=== PATIENT | male | born 1950 | race Caucasian/White ===

== ENCOUNTER 2017-02-14 14:43 | Inpatient (IN) | payer MEDICARE ==
[~2017-02-14] VITALS: Ht 170.2 cm; Wt 95.7 kg
[2017-02-14] MEDS ORDERED: ABILIFY (15:20)
[2017-02-14] MEDS ORDERED: LEVOTHYROXINE (15:20)
[2017-02-14 15:47] LABS: BASOPHILS % (AUTO) 0.4 % (0.0-2.0); EOSINOPHILS % (AUTO) 0.2 % (0.0-7.0); HEMATOCRIT 45.8 % (36.7-47.1); HEMOGLOBIN 15.4 g/dL (12.5-16.3); LYMPHOCYTES # (AUTO) 1.2 K/uL (20.0-40.0); LYMPHOCYTES % (AUTO) 23.3 % (20.5-51.5); MEAN CORPUSCULAR HEMOGLOBIN 30.9 uug (23.8-33.4); MEAN CORPUSCULAR HGB CONC 34 g/dL (32.5-36.3); MEAN CORPUSCULAR VOLUME 91.9 fL (73.0-96.2); MONOCYTES # (AUTO) 0.5 K/uL (2.0-10.0); MONOCYTES % (AUTO) 10.4 % (0.0-11.0); NEUTROPHILS # (AUTO) 3.3 K/uL (1.8-8.9); NEUTROPHILS % (AUTO) 65.7 % (38.5-71.5); PLATELET COUNT (AUTO) 116 K/uL (152-348); RED BLOOD CELL COUNT(AUTO) 4.99 MIL/uL (4.06-5.63)
[2017-02-14 16:01] LABS: CARBON DIOXIDE 27 mmol/L (21-32); CHLORIDE 110 mmol/L (98-107); CREATININE 0.9 mg/dL (0.6-1.3); GLUCOSE 103 mg/dL (74-106); POTASSIUM 3.4 mmol/L (3.5-5.1); UREA NITROGEN, BLOOD 9 mg/dL (7-18)
[2017-02-14 16:13] LABS: ALANINE AMINOTRANSFERASE 46 U/L (16-63); ALKALINE PHOSPHATASE 112 U/L (50-136); ASPARTATE AMINOTRANSFERASE 28 U/L (15-37); BILIRUBIN,DIRECT 0.1 mg/dL (0.0-0.2); BILIRUBIN,TOTAL 0.6 mg/dL (0.2-1.0); TOTAL PROTEIN, SERUM 6.3 g/dL (6.4-8.2)
[2017-02-14 16:17] LABS: ACETAMINOPHEN < 2.0 ug/mL (10-30)
[2017-02-14 16:29] LABS: ETHANOL < 3 MG/DL (0-0)
[2017-02-14] MEDS ORDERED: TEMAZEPAM 7.5 MG CAPSULE PO PRN (17:00)
[2017-02-14] MEDS ORDERED: ACETAMINOPHEN 325 MG TABLET PO PRN (17:00)
[2017-02-14] MEDS ORDERED: POTASSIUM CHLORIDE 20 MEQ TAB.PRT.SR PO ONE (17:00)
[2017-02-14] MEDS ORDERED: MAGNESIUM HYDROXIDE 30 ML LIQUID UDC PO PRN (17:00)
[2017-02-14] MEDS ORDERED: CLONAZEPAM 0.5 MG TABLET PO PRN (17:00)
[2017-02-14] MEDS ORDERED: MAG HYDROX/AL HYDROX/SIMETH 30 ML LIQUID UDC PO PRN (17:00)
[2017-02-14] MEDS ORDERED: POTASSIUM CHLORIDE 20 MEQ TAB.PRT.SR ONE (17:10)
[2017-02-14 20:29] VITALS: BP 148/88
[2017-02-15 07:30] VITALS: BP 122/76
[2017-02-15] MEDS ORDERED: ESCITALOPRAM OXALATE 10 MG TABLET NG SCH (11:15)
[2017-02-15] MEDS: ARIPIPRAZOLE 5 MG TABLET PO SCH (11:22)
[2017-02-15 17:06] VITALS: BP 150/93
[2017-02-15 20:00] VITALS: BP 111/83
[2017-02-16 07:30] VITALS: BP 149/95
[2017-02-16] MEDS: ARIPIPRAZOLE 5 MG TABLET PO SCH (08:41)
[2017-02-16] MEDS: ESCITALOPRAM OXALATE 10 MG TABLET PO SCH (09:11)
[2017-02-16 09:15] LABS: BILIRUBIN,TOTAL 0.6 mg/dL (0.2-1.0); CREATININE 1.1 mg/dL (0.6-1.3); PHOSPHOROUS 2.7 mg/dL (2.5-4.9); POTASSIUM 4.2 mmol/L (3.5-5.1); TOTAL PROTEIN, SERUM 6.7 g/dL (6.4-8.2)
[2017-02-16 09:38] LABS: BASOPHILS % (AUTO) 0.2 % (0.0-2.0); EOSINOPHILS % (AUTO) 0.1 % (0.0-7.0); HEMOGLOBIN 16.2 g/dL (12.5-16.3); LYMPHOCYTES # (AUTO) 1.1 K/uL (20.0-40.0); LYMPHOCYTES % (AUTO) 23.3 % (20.5-51.5); MEAN CORPUSCULAR HEMOGLOBIN 31.1 uug (23.8-33.4); MEAN CORPUSCULAR HGB CONC 34 g/dL (32.5-36.3); MEAN CORPUSCULAR VOLUME 92.3 fL (73.0-96.2); MONOCYTES # (AUTO) 0.3 K/uL (2.0-10.0); MONOCYTES % (AUTO) 5.3 % (0.0-11.0); NEUTROPHILS # (AUTO) 3.5 K/uL (1.8-8.9); NEUTROPHILS % (AUTO) 71.1 % (38.5-71.5); PLATELET COUNT (AUTO) 123 K/uL (152-348); WHITE BLOOD COUNT (AUTO) 4.9 K/uL (3.6-10.2)
[2017-02-16 10:43] LABS: THYROID STIMULATING HORMONE 1.285 mIU/mL (0.358-3.740)
[2017-02-16 17:23] VITALS: BP 144/86
[2017-02-17 08:03] VITALS: BP 146/83
[2017-02-17] MEDS: ESCITALOPRAM OXALATE 10 MG TABLET PO SCH (08:35)
[2017-02-17] MEDS: ARIPIPRAZOLE 5 MG TABLET PO SCH (08:35)
[2017-02-17 16:08] VITALS: BP 166/82
[2017-02-17 21:19] VITALS: BP 146/81
[2017-02-18 07:30] VITALS: BP 163/91
[2017-02-18] MEDS: ESCITALOPRAM OXALATE 10 MG TABLET PO SCH (08:02)
[2017-02-18] MEDS: ARIPIPRAZOLE 5 MG TABLET PO SCH (08:02)
[2017-02-18 10:03] LABS: *BILIRUBIN,URIN NEGATIVE (NEGATIVE); *BLOOD, URINE NEGATIVE (NEGATIVE); *CLARITY,URINE CLEAR (CLEAR); *COLOR,URINE YELLOW (YELLOW); *KETONES,URINE NEGATIVE (NEGATIVE); *PROTEIN,URINE NEGATIVE (NEGATIVE); *UROBILINOGEN,URINE 0.2 E.U./dl (NORMAL); LEUKOCYTE ESTERASE ,URINE NEGATIVE (NEGATIVE); NITRITE, URINE NEGATIVE (NEGATIVE); UGLUCOSE NEGATIVE (NEGATIVE)
[2017-02-18 10:22] LABS: BACTERIA,URINE NONE SEEN /HPF (NONE SEEN); RBC,URINE 0-3 /HPF (0-3); SQUAMOUS EPITHELIAL CELL,UR FEW /HPF (NONE SEEN); WBC,URINE 0-3 /HPF (0-3)
[2017-02-18 16:00] VITALS: BP 133/79
[2017-02-18 20:17] VITALS: BP 131/73
[2017-02-19 08:00] VITALS: BP 158/96
[2017-02-19] MEDS: ARIPIPRAZOLE 5 MG TABLET PO SCH (08:44)
[2017-02-19] MEDS: ESCITALOPRAM OXALATE 10 MG TABLET PO SCH (08:45)
[2017-02-19 16:00] VITALS: BP 163/83
[2017-02-19 20:06] VITALS: BP 136/84
[2017-02-20 07:30] VITALS: BP 169/89
[2017-02-20] MEDS: ESCITALOPRAM OXALATE 10 MG TABLET PO SCH (08:39)
[2017-02-20] MEDS: ARIPIPRAZOLE 5 MG TABLET PO SCH (08:39)
[2017-02-20 15:00] VITALS: BP 170/97
[2017-02-20 21:07] VITALS: BP 141/78
[2017-02-21 07:30] VITALS: BP 169/91
[2017-02-21 08:02] LABS: BASOPHILS % (AUTO) 0.1 % (0.0-2.0); EOSINOPHILS % (AUTO) 0.2 % (0.0-7.0); HEMOGLOBIN 16.2 g/dL (12.5-16.3); LYMPHOCYTES # (AUTO) 1.1 K/uL (20.0-40.0); LYMPHOCYTES % (AUTO) 23.1 % (20.5-51.5); MEAN CORPUSCULAR HEMOGLOBIN 31.2 uug (23.8-33.4); MEAN CORPUSCULAR HGB CONC 34 g/dL (32.5-36.3); MEAN CORPUSCULAR VOLUME 92.2 fL (73.0-96.2); MONOCYTES # (AUTO) 0.4 K/uL (2.0-10.0); MONOCYTES % (AUTO) 7.5 % (0.0-11.0); NEUTROPHILS # (AUTO) 3.4 K/uL (1.8-8.9); NEUTROPHILS % (AUTO) 69.1 % (38.5-71.5); PLATELET COUNT (AUTO) 117 K/uL (152-348); WHITE BLOOD COUNT (AUTO) 4.9 K/uL (3.6-10.2)
[2017-02-21 08:21] LABS: PHOSPHOROUS 2.5 mg/dL (2.5-4.9); POTASSIUM 3.9 mmol/L (3.5-5.1)
[2017-02-21] MEDS: ESCITALOPRAM OXALATE 10 MG TABLET PO SCH (08:26)
[2017-02-21] MEDS: ARIPIPRAZOLE 5 MG TABLET PO SCH (08:26)
[2017-02-21 15:23] VITALS: BP 167/89
[2017-02-21] MEDS: hydrALAZINE HCL 10 MG TABLET PO SCH ×2 (18:53→21:54)
[2017-02-21 20:00] VITALS: BP 156/81
[2017-02-22] MEDS: hydrALAZINE HCL 10 MG TABLET PO SCH ×2 (06:05→13:08)
[2017-02-22 07:30] VITALS: BP 164/89
[2017-02-22] MEDS: ESCITALOPRAM OXALATE 10 MG TABLET PO SCH (08:25)
[2017-02-22] MEDS: ARIPIPRAZOLE 5 MG TABLET PO SCH (08:25)
[2017-02-22] MEDS: AMLODIPINE 10 MG TABLET PO SCH (08:27)
[2017-02-22 11:46] VITALS: BP 160/86
[2017-02-22] MEDS: SENNOSIDES/DOCUSATE SODIUM TABLET PO SCH (12:18)
[2017-02-22 15:36] VITALS: BP 165/89
[2017-02-22] MEDS ORDERED: hydrALAZINE HCL 10 MG TABLET PO PRN (19:15)
[2017-02-22 20:52] VITALS: BP 143/80
[2017-02-23 07:30] VITALS: BP 165/91
[2017-02-23] MEDS: ESCITALOPRAM OXALATE 10 MG TABLET PO SCH (08:02)
[2017-02-23] MEDS: ARIPIPRAZOLE 5 MG TABLET PO SCH (08:03)
[2017-02-23] MEDS: HYDROCHLOROTHIAZIDE 25 MG TABLET PO SCH (08:03)
[2017-02-23] MEDS: AMLODIPINE 10 MG TABLET PO SCH (08:03)
[2017-02-23] MEDS: SENNOSIDES/DOCUSATE SODIUM TABLET PO SCH (09:00)
[2017-02-23 15:32] VITALS: BP 149/90
[2017-02-23] MEDS: GUAIFENESIN/DEXTROMETHORPHAN 5 ML UDC PO PRN (16:30)
[2017-02-23 20:19] VITALS: BP 150/87
[2017-02-24] MEDS: GUAIFENESIN/DEXTROMETHORPHAN 5 ML UDC PO PRN (03:11)
[2017-02-24 07:30] VITALS: BP 139/97
[2017-02-24] MEDS: ESCITALOPRAM OXALATE 10 MG TABLET PO SCH (08:50)
[2017-02-24] MEDS: ARIPIPRAZOLE 5 MG TABLET PO SCH (08:51)
[2017-02-24] MEDS: HYDROCHLOROTHIAZIDE 25 MG TABLET PO SCH (08:54)
[2017-02-24 08:55] VITALS: BP 139/97
[2017-02-24] MEDS: AMLODIPINE 10 MG TABLET PO SCH (08:55)
[2017-02-24] MEDS: SENNOSIDES/DOCUSATE SODIUM TABLET PO SCH (09:29)
== END 2017-02-24 15:30 | disposition home or self-care (01) | DRG 885 ==
LOC: ER 14:44 → GPS 15:18
PROVIDERS: ADMIT Psychiatry & Neurology Psychiatry; ATTEND Internal Medicine
DX: F31.4 Bipolar disorder, current episode depressed, severe, without psychotic features (principal); D69.6 Thrombocytopenia, unspecified; E87.0 Hyperosmolality and hypernatremia; I11.9 Hypertensive heart disease without heart failure; J44.9 Chronic obstructive pulmonary disease, unspecified; E03.9 Hypothyroidism, unspecified; E87.6 Hypokalemia; Z96.642 Presence of left artificial hip joint; K59.00 Constipation, unspecified; F41.9 Anxiety disorder, unspecified; Z79.899 Other long term (current) drug therapy
CPT/HCPCS: 36415; 74150; 83735; 84100; 84443; 85025; 87086; 93005; G0480; G0480-TC